=== PATIENT | male | born 1965 | race Caucasian/White ===

== ENCOUNTER → 2023-07-20 | Outpatient (CLI) | payer OTHER ==
[2023-07-20 15:48] LABS: HCT 40.5 % (39.6-50.0); HGB 13.5 g/dL (13.0-17.0); MCHC 33.3 g/dL (32.0-37.0); MCV 92.9 FL (80.0-97.0); Mean Platelet Volume 9.1 FL (9.5-12.2); NRBC Per 100 WBC 0 X 10*3/uL (0.00-0.01); Platelet Count 354 X 10*3/uL (140-440); RBC 4.36 X 10*6/uL (4.40-5.60); RDW 12.6 % (11.5-14.5); WBC 8.52 X 10*3/uL (4.50-10.00)
[2023-07-20 16:12] LABS: ALT 27 U/L (10-49); AST 23 U/L (14-35); Albumin 4.4 g/dL (3.8-4.9); Albumin/Globulin Ratio 1.76 Ratio (1.60-3.17); Alkaline Phosphatase 99 U/L (41-126); BUN/Creat Ratio 7.36 Ratio (12.00-20.00); Blood Urea Nitrogen 8.1 mg/dL (9.0-27.0); Calcium 9.4 mg/dL (8.7-10.3); Carbon Dioxide 24.4 mmol/L (21.6-31.8); Chloride 102 mmol/L (96-109); Globulin 2.5 g/dL (1.6-3.3); Glucose 113 mg/dL (70-110); Potassium 4.3 mmol/L (3.5-5.5); Sodium 139 mmol/L (135-145); Total Bilirubin 0.3 mg/dL (0.3-1.2); Total Protein 6.9 g/dL (6.2-8.2)
[2023-07-20 20:28] LABS: INR 0.99 sec (0.93-1.11); Prothrombin Time 10.7 sec (9.9-11.9)
== END | disposition home or self-care (01) ==
LOC: LABPAT 12:27
PROVIDERS: ATTEND Orthopaedic Surgery
DX: Z01.812 Encounter for preprocedural laboratory examination (principal)
CPT/HCPCS: 36415; 80053; 82306; 85027; 85610

== ENCOUNTER → 2023-08-02 | Outpatient (CLI) | payer MEDICARE | END | disposition home or self-care (01) | LOC: LABPAT 14:42 | PROVIDERS: ATTEND Orthopaedic Surgery | DX: Z01.812 Encounter for preprocedural laboratory examination (principal); M13.88 Other specified arthritis, other site; Z22.322 Carrier or suspected carrier of Methicillin resistant Staphylococcus aureus | CPT/HCPCS: 86850; 86900; 86901; 87070 ==

== ENCOUNTER 2023-08-09 06:11 | Day surgery (SDC) | payer MEDICARE, OTHER ==
[2023-08-03 13:57] VITALS: BMI 26.4
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
[~2023-08-09 06:11] MED LIST: ACETAMINOPHEN TAB 500 MG TAB PO PRN; LIDOCAINE 1% (10MG/ML) FOR IV START INTRADERMA PRN; TRANEXAMIC 1,000 MG/100ML-NACL 1,000 MG in SALINE 1 100ML.BAG IVPB PRN
[2023-08-09] MEDS ORDERED: HYDROmorphone 0.5 MG/0.5 ML SYRINGE IVP PRN (07:00)
[2023-08-09] MEDS: IV FLUID CONTINUATION 1,000 ML IV ONE ×2 (07:09)
[2023-08-09] MEDS: ONDANSETRON 4 MG/2 ML VIAL IVP PRN (07:14)
[2023-08-09] MEDS: DEXAMETHASONE SOD PHOSPHATE 4 MG/ML 1 ML VIAL IVP STA (07:15)
[2023-08-09] MEDS: GABAPENTIN 300 MG CAP PO PRN (07:15)
[2023-08-09] MEDS: LACTATED RINGERS 1,000 ML IV SCH (07:18)
[2023-08-09] MEDS ORDERED: TRANEXAMIC 1,000 MG/100ML-NACL PREMIX BAG ONE (07:24)
[2023-08-09] MEDS ORDERED: GLYCOPYRROLATE 0.2 MG/ML 2 ML VIAL ONE (07:24)
[2023-08-09] MEDS ORDERED: PHENYLEPHRINE-0.9% NACL SYG 1,000 MCG/10 ML SYRINGE ONE (07:24)
[2023-08-09] MEDS ORDERED: ePHEDrine 50 MG/ML 1 ML VIAL ONE (07:24)
[2023-08-09] MEDS ORDERED: fentaNYL (PF) 50 MCG/ML 2 ML AMP ONE (07:24)
[2023-08-09] MEDS ORDERED: SUCCINYLCHOLINE CHLORIDE 200 MG/10 ML VIAL IV ONE (07:24)
[2023-08-09] MEDS ORDERED: ROCURONIUM 10 MG/ML (5 ML VIAL) IV ONE (07:24)
[2023-08-09] MEDS ORDERED: NEOSTIGMINE 1 MG/ML 10 ML VIAL ONE (07:24)
[2023-08-09] MEDS ORDERED: LIDOCAINE 1% INJ 10MG/ML (20 ML MDV) ONE (07:24)
[2023-08-09] MEDS ORDERED: MIDAZOLAM 2 MG/2 ML VIAL ONE (07:24)
[2023-08-09] MEDS ORDERED: PROPOFOL 10 MG/ML 20 ML VIAL IV ONE (07:24)
[2023-08-09] MEDS ORDERED: HYDROmorphone (PF) 1 MG/ML ONE (07:24)
[2023-08-09] MEDS: LIDOCAINE 2%-EPI 1:100,000 20 ML VIAL SQ ONE (08:41)
[2023-08-09] MEDS: BUPIVACAINE (PF) 0.5% 30 ML VIAL SQ ONE (08:41)
--- NOTE | 2023-08-09 08:57 | P.OP ---
Date of Procedure: 08/09/23 Preoperative Diagnosis: Current Active Problems Lumbosacral spondylosis (Acute) Sacroiliitis (Acute) Lumbosacral dysfunction (Acute) Postoperative Diagnosis: Current Active Problems Lumbosacral spondylosis (Acute) Sacroiliitis (Acute) Lumbosacral dysfunction (Acute) Procedure(s) Performed: 1. LEFT MINIMALLY INVASIVE SIJ FUSION 2. PELVIC FIXATION ILLIUM TO SACRUM 3. USE OF [employer] NAVIGATION FOR SCREW PLACEMENT USE OF IONM Implants: GENESYS SIROS SI FUSION 10.5MM 55, 45 AND 50 MM SCREWS. Anesthesia: GETA Surgeon: Darrius Kahn Mattress Weaver #1: Kasey Overton (WAS PRESENT AND ASSISTED WITH ALL ASPECTS OF THE CASE FROM POSITION TO CLOSURE) Estimated Blood Loss (ml): 25 IV fluids (ml): 800 Urine output (ml): 0 Pathology: none sent Condition: stable Disposition: PACU Indications for Procedure: Mr. Merritt is presenting for evaluation of low back and left leg pain. It was my pleasure to have seen and examined Mr. Merritt. In our visit today we have had a chance to go over subjective complaints, physical examination findings and treatments including the natural course history without intervention and various interventional options. The patients imaging demonstrates: X-ray of the left hip, multiple views, completed at [facility] on 06/02/2023: Images reviewed. Mild OA changes of the right hip do not account for the patients symptoms. no fractures, lesions or osseous abnormalities noted of the hip. GH joint is congruent. MRI [id number]/15/2023 of LumbarSpine completed at [facility] Open MRI: - Re-reviewed with the patient in office today. No fracture. No lesions. L5-S1 post surgical changes noted without complication noted. On physical exam, Mr. Merritt demonstrates: An intense ache-like pain throughout the low back that radiates down into the bilateral lower extremities, worse on the left compared to the right. He states his left leg pain is associated with numbness and tingling throughout the posterior aspect. The patient states his symptoms worsen after prolonged sitting, when going up the stairs, or when going from a seated to standing position. The patient notes a worsening burning sensation throughout the anterior aspect of the bilateral thigh. SIJ Testing: Yes TTP: Yes, LEFT side [place] Finger:+ FABER4: + Compression: + Distraction: + Thigh thrust: + Hip thrust: + SIJ Work up: Brace: SI BELT-made worse Injections: YES x3 diagnostic and therepeudic. >80% relief from each, but did not last longer than 1 month. Contrasted studies done as well as US guided. Imaging: YES. MRI Lumbar spine, CT pelvis and SIJ, XR hip. XR hip neg for pathology. Lumbar films have no contributing pathology to his sx and CT shows sclerosis in the SIJ. No infective process. NO lesions. I have explained to the patient that as their condition progresses it will cause further neurological deficits and eventual paralysis. Based on the patients imaging, physical exam, and the rapid progression and disabling nature of their symptoms, at this time I recommend surgery in the form of a: Left SI joint fusion. I discussed the risk and benefits of this procedure at length with Mr. Merritt. The patient agreed to considered pursuing the procedure above mentioned. Prior to surgery, she should follow up with her PCP (Cardio, ID, IM etc) for clearance. Questions were invited and answered, and the patient wishes to proceed as outlined below. Currently, I am recommendin.Left minimally invasive Sacroilliac joint fusion Description of Procedure: Left SI fusion MIS (BRYAN) The patient was seen and examined in the preoperative area. All preoperative protocols were followed. Informed consent was obtained, risks and benefits of the procedure were discussed at length. Risks including bleeding infection damage to the surrounding tissue and risk of reoperation were discussed with the patient. Risk of anesthesia up to and including was discussed with the patient. These are outlined in the risk review. They were willing to accept these risks and all of the risks of surgery. The patient was given a weight- based dose of antibiotics in the form of 2 g Ancef. The patient was seen and evaluated by the anesthesia team who deemed them fit for surgery. The site was marked, the patient was willing to proceed with the procedure. The patient was transferred to the operative suite by the Department of anesthesia. They were then drifted off to sleep by the department anesthesia and GETA was performed. The patient tolerated this well. Once confirmation of lines and ventilation the patient was transferred to a [prone Darius table very carefully]. All bony prominences including wrists, elbows, axilla, chest, hips, and thighs, and feet were padded very well. Special attention was paid to the genitalia and these were padded accordingly. SCDs were placed on bilateral lower extremities and were connected. Arms were well padded and placed [on arm boards up and out in the 90/90 position]. Once in position, again we confirmed good ventilation capabilities and that lines were running appropriately. The patient's lumbopelvic spine was then exposed. 1010s were placed outlining the incision site. Standard alcohol was used to clean the incision site and allowed to dry. C-arm was used to biomark the patient and confirm level for incision which was marked with a skin marker. Operative briefing was performed with all teams and everyone in agreement to proceed. The patient was then prepped and draped in a normal sterile fashion. Timeout was then performed and all parties were in agreement with the procedure to be performed. Skin nicks were made over the PSIS on the right side and pins placed for [employer] Tracker system. Tracker attached and 3D Zhiem spin registered. Once confirmed to be accurate, skin incision was then made over the previously marked area over the left upper buttock region of the patient following the alar lines and mid sacral line. Blunt dissection was then taken down to the ilium. Navigated Jamshidi was then used to place a pin optimally within the SI region superiorly and into S1 body. This was then measured and drilled and a screw placed using navigated instruments. Then using the parallel guide and a navigated jamshidi, a second screw was placed in the anterior inferior position in a similar fashion that was then repeated for the inferior posterior screw. All screws had excellent purchase and were confirmed to be in good position on AP lateral inlet and outlet views. Neuro monitoring was then used to test the superior screw for L5 and S1 and these tested above 20 mA. No neuro monitoring changes during surgery, no EMG. Final fluoroscopic images then confirmed good placement of hardware. We then thoroughly irrigated the wound. Deep fascia was closed with 0 Vicryl superficial closed with 2-0 Vicryl and skin closed with sary. The wound was then cleaned and dressed with skin glue which was allowed to dry and then a Band-Aid. The patient was transferred back to their hospital bed atraumatically. Patient was then awakened and extubated by the department of anesthesia having tolerated the procedure very well with no complications. They were transferred to the postoperative care unit in stable condition.
[2023-08-09 09:18] VITALS: TEMP 97.2
--- NOTE | 2023-08-09 09:22 | FL ---
EXAMINATION TYPE: FL guidance operating room DATE OF EXAM: 08/09/2023 HISTORY: Fluoroscopy time Total dose area product (DAP) in uGy*m?, mGy*cm? (or similar): 3046.70 IMPRESSION: 1. Fluoroscopy time.
[2023-08-09 10:44] VITALS: RESP 16
[2023-08-09 11:05] VITALS: BP 142/84; PULSE 71
== END 2023-08-09 11:30 | disposition home or self-care (01) ==
LOC: OR 06:11
PROVIDERS: ATTEND Orthopaedic Surgery
DX: M46.1 Sacroiliitis, not elsewhere classified (principal); M47.817 Spondylosis without myelopathy or radiculopathy, lumbosacral region; M13.88 Other specified arthritis, other site; G89.29 Other chronic pain; G47.33 Obstructive sleep apnea (adult) (pediatric); I10 Essential (primary) hypertension; I69.354 Hemiplegia and hemiparesis following cerebral infarction affecting left non-dominant side; Z88.6 Allergy status to analgesic agent; Z79.82 Long term (current) use of aspirin; Z79.899 Other long term (current) drug therapy; Z86.718 Personal history of other venous thrombosis and embolism; Z79.02 Long term (current) use of antithrombotics/antiplatelets; Z87.891 Personal history of nicotine dependence
CPT/HCPCS: 95861; 27279; 72220; C1713; J2250; J0330; J1100; J2710; J0690; J2405; J2001; J3010; J1170; J2704; J2371; J0665